=== PATIENT | male | born 1940 | race Caucasian/White ===

== ENCOUNTER → 2016-09-09 | Outpatient (CLI) | payer MEDICARE ==
[2015-11-18 11:49] VITALS: BP 163/76
[~2016-09-09] MED LIST: ACET325T9 PO; ASPI-482 PO; ASPI325T8 PO; AZEL137S3 NS; CARV12.52 PO; CARV6.252 PO; CLOP75TA PO; CRESTOR20 MG PO; CRESTOR40 MG PO; FLUT12AE IH; FURO-68 PO; INSU100C4 SQ; INSU100V13 SQ; IPRA3AMP NEB; LISI-334 PO; OXYB5TAB7 PO; REGADENOSON 0.4 MG/5 ML DISP.SYRIN. IV ONE; TICA90TA PO; WARF5TAB7 PO; WARF7.5T6 PO; [UNRECOGNIZED DRUG - OTHER]
--- NOTE | 2016-09-09 19:34 | RAD ---
APPROVED REPORT Test Type: Pharmacological Stress Nurse/Tech: Lolis Benton R.N. Test Indications: CAD Cardiac History: Family history, Hypertension, Diabetes, Family Hist., CAD, CABG x 2, former smoker , CA of Lung Medications: See Electronic Medical Record Medical History: See Electronic Medical Record Resting ECG: LBBB Resting Heart Rate: 70 bpm Resting Blood Pressure: 116/51mmHg Pretest Chest Pain: No chest pain Nurse/Tech Notes S1S2, rt lung sounds dimished but clear dom; Consent: The procedure was explained to the patient in lay terms. Informed consent was witnessed. Ron eout was entered into [email or web address]. History and Stress Test performed by Lolis Benton R.N. Pharm. Details Pharmacologic stress testing was performed using 0.4mg per 5ml of regadenoson given intravenously ove r 7-10 seconds. Stress Symptoms slight chest pain Chest pain typical of angina occurred (Severity rated at 3 for 1 min , min duration). POST EXERCISE Reason for Termination: Infusion complete Max HR: 105 bpm Max Blood Pressure: 123/47mmHg Blood Pressure response to exercise: Normal blood pressure response during stress. Chest Pain: Yes. rated at 3 for about 1 min Arrhythmia: No. ST Change: No. Imaging Protocol IMAGE PROTOCOL: Rest Tc-99m/stress Tc-99m 1 day Rest: Stress: Viability: Radiopharm.Tc99m [id number] Sestamibi Dose11.3mCi 33mCi Duration 15min. 10min. Img Date 09/09/2016 09/09/2016 Inj-Img [id number]. 90min. Rest Admin Site:IV - Right HandAdministrator:KELLY Dudley Stress Admin Site: IV - Right HandAdministrator: KELLY Dudley STRESS DATA End Diast. Vol.180.0mlAv. Heart Rate70.0bpm End Syst. Vol.78.0mlCO Index BSA0.0L/min Myocardial Jiuj662.0gEject. Lnjnlgwr44.0% Stress Rates Pk. Fill Rate2.63EDV/secLVtime Pk. Fill 101.13msec Pk. Empty Rate2.94ESV/secLVtime Pk. Mecmz558.61msec 1/3 Pk. Fill1.72EDV/sec Stress Scores Regional WT1.00Summed WT19.00 Regional WM0.00Summed WM15.00 LV Perf. Quant 17 Seg. SSS13.00 17 Seg. SRS6.00 17 Seg. SDS7.00 Stress Defect Extent (% LAD)1.30Rest Defect Extent (% LAD)0.00Rev. Defect Extent (% LAD)1.30 Stress Defect Extent (% LCX) 73.80Rest Defect Extent (% LCX)51.30Rev. Defect Extent (% LCX)65.00 Stress Defect Extent (% RCA)32.20Rest Defect Extent (% RCA)8.90Rev. Defect Extent (% RCA)20.00 Stress Defect Extent (% SREEDHAR)27.20Rest Defect Extent (% SREEDHAR)13.00Rev. Defect Extent (% SREEDHAR)22.00 Conclusion 1. The baseline EKG showed a paced rhythm 2. Large area of mixed perfusion defect over the inferior wal, ans lateral wall.Predominantly ischemi c 3. Hypokinesis of the lateral wall and inferior wall with an ejection fraction of57%. 4. Scan indicates moderate risk for future cardiac events
== END | disposition home or self-care (01) ==
LOC: NM 09:23
PROVIDERS: ATTEND Specialist
DX: I25.10 Atherosclerotic heart disease of native coronary artery without angina pectoris (principal)
CPT/HCPCS: 78452; 93017; 96374; 96375; 96376; A9500; J2785